=== PATIENT | male | born 1995 | race Caucasian/White ===

== ENCOUNTER 2017-05-19 10:21 | Emergency (ER) | payer BC ==
[~2017-05-19] VITALS: Ht 195.6 cm; Wt 93.6 kg
[~2017-05-19 10:21] MED LIST: ROBITUSSIN AC,T10 ML PO; ZITHROMAX Z-PA250 MG PO
[2017-05-19] MEDS ORDERED: BUPROPION HCL150 M2 PO (10:46)
[2017-05-19] MEDS ORDERED: ATARAX,VISTARIL25 MG PO (10:46)
[2017-05-19 10:48] LABS: POINT-OF-CARE METER ID UU13113747
[2017-05-19 11:12] LABS: EOSINOPHIL (%) 0.7 % (0-5); HEMATOCRIT 42.7 % (38.0-50.0); IMMATURE GRANULOCYTE COUNT 0.1 K/uL; INSTRUMENT ABS NEUTROPHIL CT 4.6 K/uL; LYMPHOCYTE COUNT 0.9 K/uL (1.0-2.8); MCH 30.4 PG (29.0-34.0); MCHC 34.9 G/DL (30.0-36.0); MCV 87.1 FL (86-99); MEAN PLAT.VOLUME 8.9 uM^3 (9.0-12.4); MONOCYTE (%) 4.9 % (3-12); MONOCYTE COUNT 0.3 K/uL (0-0.8); NEUTROPHIL (%) 77.9 % (45-76); NEUTROPHIL COUNT 4.6 K/uL (1.8-6.4); PLATELET COUNT 166 K/uL (156-360); RBC DIS.WIDTH-CV 11.8 % (11.8-14.6); WHITE BLOOD COUNT 5.9 K/uL (4.1-10.2)
[2017-05-19 11:23] LABS: CHLORIDE 107 mEq/L (99-109); POTASSIUM 4.3 mEq/L (3.7-5.4); SODIUM 139 mEq/L (136-147)
[2017-05-19 11:25] LABS: GLUCOSE 103 mg/dL (70-99)
[2017-05-19 11:26] LABS: ANION GAP 15 MEQ/L (2-14)
[2017-05-19 11:29] LABS: GFR ESTIMATE (CALCULATED) > 59 mL/min/
[2017-05-19 11:30] LABS: UREA NITROGEN (BUN) 11 mg/dL (9-23)
[2017-05-19 14:56] VITALS: BP 111/69
== END 2017-05-19 14:57 | disposition home or self-care (01) ==
LOC: EME 10:21
PROVIDERS: Emergency Medicine
DX: R56.9 Unspecified convulsions (principal); R41.0 Disorientation, unspecified; R51 Headache; R45.1 Restlessness and agitation; I45.10 Unspecified right bundle-branch block; R00.0 Tachycardia, unspecified; F17.200 Nicotine dependence, unspecified, uncomplicated
CPT/HCPCS: 70450; 80048; 82948; 85025; 93005; 99281; 99285; J1885; J7030